=== PATIENT | male | born 1990 | race Caucasian/White ===

== ENCOUNTER → 2020-12-16 | Outpatient (CLI) | payer OTHER | LOC: M LAB 15:32 | PROVIDERS: ATTEND Advanced Practice Midwife | DX: I50.9 Heart failure, unspecified (principal) ==

== ENCOUNTER 2020-12-26 09:31 | Emergency (ER) | payer OTHER ==
[~2020-12-26] VITALS: Ht 175.3 cm; Wt 83.6 kg
[2020-12-26 09:32] VITALS: BP 137/71
[2020-12-26] MEDS ORDERED: ACE65ERTAB PO (09:37)
[2020-12-26] MEDS ORDERED: BENZOCAINE 20% GEL 9GM TUBE (ANBESOL MAX STRENGTH) TOP ONE (10:30)
[2020-12-26] MEDS ORDERED: KETOROLAC 30 MG/ML 1ML VIAL IM ONE (10:30)
[2020-12-26] MEDS ORDERED: IBUP80TA PO (10:40)
[2020-12-26] MEDS ORDERED: AUGM875T28 PO (10:40)
[2020-12-26] MEDS ORDERED: HYDR-3715 PO (10:45)
== END 2020-12-26 10:54 | disposition home or self-care (01) ==
LOC: M ED 09:31
DX: K02.9 Dental caries, unspecified (principal); K04.7 Periapical abscess without sinus; K05.30 Chronic periodontitis, unspecified; F17.210 Nicotine dependence, cigarettes, uncomplicated
CPT/HCPCS: 96372; 99282; J1885

== ENCOUNTER → 2022-10-28 | Outpatient (REF) | payer OTHER ==
[~2022-10-28] MED LIST: ACE65ERTAB PO; AUGM875T28 PO; HYDR-3715 PO; IBUP80TA PO
== END ==
LOC: M LAB REF 18:22
PROVIDERS: ATTEND Physician Assistant
DX: J02.9 Acute pharyngitis, unspecified (principal)

== ENCOUNTER 2025-04-18 02:47 | Emergency (ER) | payer OTHER, SELFPAY ==
[~2025-04-18] VITALS: Ht 172.7 cm; Wt 78.9 kg
[~2025-04-18 02:47] MED LIST changes: -ACE65ERTAB PO; +ACET-1593 PO
[2025-04-18] MEDS ORDERED: ACET-683 PO (02:52)
[2025-04-18] MEDS ORDERED: AMOX875T2 PO (06:38)
[2025-04-18] MEDS: AUGMENTIN 875 MG TAB PO ONE (06:46)
[2025-04-18 07:04] VITALS: BP 166/91; TEMP 98.3; O2SAT 100
== END 2025-04-18 07:05 | disposition home or self-care (01) ==
LOC: M ED 02:47
DX: K04.7 Periapical abscess without sinus (principal); Z79.1 Long term (current) use of non-steroidal anti-inflammatories (NSAID); Z79.2 Long term (current) use of antibiotics
CPT/HCPCS: 96374; 99283; J1100